=== PATIENT | female | born 1970 | race Caucasian/White ===

== ENCOUNTER 2017-02-02 19:34 | Emergency (ER) | payer SELFPAY ==
[~2017-02-02] VITALS: Ht 172.7 cm; Wt 90.9 kg
[2017-02-02 19:38] VITALS: BP 118/73; PULSE 94; TEMP 98.1
[2017-02-02] MEDS ORDERED: ALBUTEROL0.83 MG/ML IH (20:09)
[2017-02-02] MEDS ORDERED: SINGULAIR 110 MG/TAB PO (20:09)
== END 2017-02-02 20:25 | disposition home or self-care (01) ==
LOC: COL.ER 19:34
DX: J45.909 Unspecified asthma, uncomplicated (principal); J33.9 Nasal polyp, unspecified; F17.210 Nicotine dependence, cigarettes, uncomplicated
CPT/HCPCS: J1100

== ENCOUNTER 2017-03-22 13:38 | Emergency (ER) | payer SELFPAY ==
[~2017-03-22] VITALS: Ht 172.7 cm; Wt 84.4 kg
[~2017-03-22 13:38] MED LIST: ALBUTEROL0.83 MG/ML IH; SINGULAIR 110 MG/TAB PO
[2017-03-22 13:39] VITALS: TEMP 97.9
[2017-03-22] MEDS ORDERED: PREDNISONE20 MG PO (15:30)
[2017-03-22 15:47] VITALS: BP 130/83; PULSE 105
== END 2017-03-22 15:48 | disposition home or self-care (01) ==
LOC: COL.ER 13:38
DX: J45.901 Unspecified asthma with (acute) exacerbation (principal); H60.92 Unspecified otitis externa, left ear; F17.210 Nicotine dependence, cigarettes, uncomplicated
CPT/HCPCS: J7512